=== PATIENT | male | born 1990 ===

== ENCOUNTER 2018-07-19 06:02 | Emergency (ER) | payer OTHER ==
[2018-07-19 06:14] VITALS: BP 120/78; PULSE 69; RESP 17; TEMP 98.1; O2SAT 99
--- NOTE | 2018-07-19 06:23 | ED PDOC ---
HPI: CCC, URI, Sore Throat Time Seen by Provider: 07/19/18 06:12 Chief Complaint (Nursing): ENT Problem Chief Complaint (Provider): ENT problem History Per: Patient, Md Pediatric Allergist (valery #[id number]) History/Exam Limitations: no limitations Onset/Duration Of Symptoms: Days (4x) Current Symptoms Are (Timing): Still Present Location Of Pain: Ear(s), Throat Associated Symptoms: Sore Throat, Nasal Congestion. denies: Fever, Cough Ear Symptoms: Bilateral: Ear Pain (more left ear), Decreased Hearing Severity: Moderate Additional Complaint(s): 28 year old male with no past medical history presents to the ED for an evaluation of a sore throat and ear pain, associated with some hearing loss, rhinorrhea, and nasal congestion, ongoing for 4x days. Patient states that the ear pain is greater to the left ear. Patient denies having a cough or fevers. PMD: Belia Nassar MD Past Medical History Reviewed: Historical Data, Nursing Documentation, Vital Signs Vital Signs: Last Vital Signs Temp 98.1 F 07/19/18 06:10 Pulse 69 07/19/18 06:10 Resp 17 07/19/18 06:10 BP 120/78 07/19/18 06:10 Pulse Ox 99 07/19/18 06:10 AURELIA Report Viewed: Yes Primary Care Provider: FAMILY PROVIDER,NO - Medical History PMH: No Chronic Diseases - Family History Family History: States: No Known Family Hx - Home Medications Home Medications: Ambulatory Orders Medication Instructions Recorded Amoxicillin/Clavulanate [Augmentin 1 tab PO BID 7 Days #14 tab 07/19/18 875 MG-125 MG] Ibuprofen [Motrin Tab] 600 mg PO Q6 #30 tab 07/19/18 Prednisone 50 mg PO DAILY #3 tab 07/19/18 - Allergies Allergies/Adverse Reactions: Allergies Allergy/AdvReac Type Severity Reaction Status Date / Time No Known Allergies Allergy Verified 07/19/18 06:16 Review of Systems ROS Statement: Except As Marked, All Systems Reviewed And Found Negative Constitutional: Negative for: Fever ENT: Positive for: Ear Pain (bilateral, left more than right), Nose Discharge, Nose Congestion, Throat Pain Respiratory: Negative for: Cough Physical Exam - Reviewed Nursing Documentation Reviewed: Yes Vital Signs Reviewed: Yes - Physical Exam Appears: Positive for: Well, Non-toxic, No Acute Distress Head Exam: Positive for: ATRAUMATIC, NORMOCEPHALIC Skin: Positive for: Normal Color, Warm, Dry Eye Exam: Positive for: Normal appearance ENT: Positive for: TM Is/Are (left TM: erythematous, mild bulging. ). Negative for: Pharyngeal Erythema, Tonsillar Exudate, Tonsillar Swelling Cardiovascular/Chest: Positive for: Regular Rate, Rhythm Respiratory: Positive for: Normal Breath Sounds Neurological/Psych: Positive for: Awake, Alert, Oriented (3x) - ECG O2 Sat by Pulse Oximetry: 99 (RA) Pulse Ox Interpretation: Normal Medical Decision Making Medical Decision Makin:12 Initial impression: 28 year old male with acute otitis media. Will treat and advise patient to follow up with PMD. Very well appearing and nontoxic. Scribe Attestation: Documented by Corinna Sullivan, acting as a scribe for Patrick Anderson MD. Provider Scribe Attestation: All medical record entries made by the Scribe were at my direction and person ally dictated by me. I have reviewed the chart and agree that the record accurately reflects my personal performance of the history, physical exam, medical decision making, and the department course for this patient. I have also personally directed, reviewed, and agree with the discharge instructions and disposition. Disposition - Clinical Impression Clinical Impression: Otitis media - Disposition Referrals: Belia Nassar MD [Primary Care Provider] - Disposition: Routine/Home Disposition Time: 06:12 Condition: GOOD Prescriptions: Amoxicillin/Clavulanate [Augmentin 875 MG-125 MG] 1 tab PO BID 7 Days #14 tab Ibuprofen [Motrin Tab] 600 mg PO Q6 #30 tab Prednisone 50 mg PO DAILY #3 tab Instructions: Ear Infections (Otitis Media) Forms: Chikka (French) Print Language: NIUEAN
== END 2018-07-19 06:40 | disposition home or self-care (01) ==
LOC: H.ER 06:02
DX: H66.90 Otitis media, unspecified, unspecified ear (principal)